=== PATIENT | male | born 1945 | race Caucasian/White ===

== ENCOUNTER → 2017-06-09 | Outpatient (CLI) | payer BC ==
[~2017-06-09] MED LIST: AMLO-114 PO; ASPI325T45 PO; CRS10 PO; CTP2 PO; CYAN10005 PO; CZR50 PO; GLCSC500400 PO; HYG25 PO; ISOS30TA3 PO; METO50TA16 PO; MULT-190 PO; oxycodone PO
== END ==
LOC: C.LABMFLN 15:24
PROVIDERS: ATTEND Urology
DX: N40.1 Benign prostatic hyperplasia with lower urinary tract symptoms (principal)